=== PATIENT | male | born 1995 | race Caucasian/White ===

== ENCOUNTER 2021-07-04 23:22 | Emergency (ER) | payer OTHER, SELFPAY ==
--- NOTE | ~2021-07-04 | XR_ITS ---
XR hand LT min 3V DATE: 07/04/2021 23:40 INDICATION: Posterior medial left first digit pain for 2 hours. No injury. TECHNIQUE: 3 views COMPARISON: None FINDINGS: No fracture, dislocation, periosteal reaction or bone destruction, joint space narrowing, e rosive change or chondrocalcinosis. Joint spaces are preserved. No radiopaque foreign body or subcuta neous emphysema. IMPRESSION: Negative Reviewed, dictated and finalized at location A. IMPRESSION: Negative
[2021-07-04 23:24] VITALS: BP 139/83; PULSE 78; RESP 16; TEMP 36; O2SAT 99
--- NOTE | 2021-07-05 01:47 | ED.GENADULT ---
HPI - General Adult General Chief complaint: Extremity Injury, Upper Stated complaint: thumb pain Time Seen by Provider: 07/05/21 01:41 History of Present Illness HPI narrative: Patient is a 26-year-old gentleman who presents to emergency department with chief complaint of left thumb pain. 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 Patient states that while moving a box he felt as though his thumb was tender took his glove off noticed it was a red nelly on the lateral aspect of his left thumb. Patient states it hurts whenever he moves it reports that he tried icing it during his break and still had some discomfort whenever he was moving it. The patient reports no known specific injury but reports that sometimes he does bump into things and does not quite realize it. The patient denies any other injury denies loss of consciousness. Patient is right-hand dominant Review of Systems Review of Systems: A 10 system review of systems was completed on the patient and is negative except for what is stated in the HPI. Nursing and ancillary documentation was reviewed. Exam Narrative: GENERAL: Well-appearing, well-nourished, and in no acute distress. HEAD: Normocephalic, atraumatic. EYES: PERRLA and EOMI. ENT: Nares clear, no rhinorrhea or epistaxis. Mucous membranes moist. NECK: Supple. CHEST: Clear to auscultation. No respiratory distress. HEART: Regular rate and rhythm. No murmur heard. Normal peripheral pulses. ABDOMEN: Soft, nontender, nondistended, normal active bowel sounds. EXTREMITIES: Normal range of motion. No edema. There is a slight red nelly at the IP joint there is tenderness to palpation there is no swelling. SKIN: Warm, dry, no rash. NEURO: No focal deficits. Alert and oriented x3. PSYCH: Normal mood and affect. Course Course Emergency Course: Plain film x-rays of the left thumb showed no evidence of fracture Vital Signs Vital signs: Vital Signs Temperature 36.0 C L 07/04/21 23:24 Pulse Rate 78 07/04/21 23:24 Respiratory Rate 16 07/04/21 23:24 Blood Pressure 139/83 07/04/21 23:24 Pulse Oximetry 99 07/04/21 23:24 Temperature 36.0 C L 07/04/21 23:24 Pulse Rate 78 07/04/21 23:24 Respiratory Rate 16 07/04/21 23:24 Blood Pressure 139/83 07/04/21 23:24 Pulse Oximetry 99 07/04/21 23:24 Medical Decision Making Vital Signs Vital Signs: Vital Signs Temperature 36.0 C L 07/04/21 23:24 Pulse Rate 78 07/04/21 23:24 Respiratory Rate 16 07/04/21 23:24 Blood Pressure 139/83 07/04/21 23:24 Pulse Oximetry 99 07/04/21 23:24 Temperature 36.0 C L 07/04/21 23:24 Pulse Rate 78 07/04/21 23:24 Respiratory Rate 16 07/04/21 23:24 Blood Pressure 139/83 07/04/21 23:24 Pulse Oximetry 99 07/04/21 23:24 Discharge Plan Discharge Clinical Impression: Contusion of left thumb Qualifiers: Encounter type: initial encounter Damage to nail status: without damage Qualified Code(s): S60.012A - Contusion of left thumb without damage to nail, initial encounter Patient Disposition: Home, Self-Care Condition: Stable Instructions: Antibiotic Form, Contusion in Adults (ED) Additional Instructions: Please follow-up with your occupational medicine provider with [employer]. You may take ibuprofen as needed for the discomfort in your thumb Follow-up/Referrals: PHYSICIAN NOT ON STAFF,NONSTAFF [Primary Care Provider] - Stand Alone Forms: Work/School Release IP Time of Disposition: 01:52
[2021-07-05 02:12] VITALS: BP 139/83; PULSE 78; RESP 18; TEMP 36; O2SAT 99
== END 2021-07-05 02:12 | disposition home or self-care (01) ==
PROVIDERS: Emergency Provider Emergency Medicine
DX: S60.012A Contusion of left thumb without damage to nail, initial encounter (principal); X58.XXXA Exposure to other specified factors, initial encounter
CPT/HCPCS: 73130; 99283